=== PATIENT | female | born 1990 | race African-American/Black ===

== ENCOUNTER 2016-09-29 01:00 | Inpatient (IN) | payer OTHER ==
[~2016-09-29] VITALS: Ht 157.5 cm; Wt 63.5 kg
--- NOTE | ~2016-09-29 | DS ---
Unit #: [id number] #: [id number] Patient: EMILE WEST [id number] [place] [address] [id number] MR#: [id number] NAME: EMILE WEST ROOM: P184 Age: 26 Sex: F Admission Date: 09/29/2016 : 1990 Discharge Date: 10/02/2016 Attending Physician: Breana Oswald M.D. Primary Care Physician: Generic Doctor Not In System DISCHARGE SUMMARY IDENTIFICATION DATA Ms. West is a 26-year-old single female who is a resident of [place], [place], and was transferred to us from [facility]. DISCHARGE DIAGNOSES PSYCHIATRIC: Opiate dependence, moderate, in acute withdrawals. Opiate-induced mood disorder. MEDICAL: Hepatitis B. STRESSORS: Mild psychosocial stressors. HISTORY OF PRESENT ILLNESS Same as in initial psychiatric evaluation. PAST PSYCHIATRIC HISTORY Same as in initial psychiatric evaluation. PAST MEDICAL HISTORY Same as in initial psychiatric evaluation. HOSPITAL COURSE The patient was admitted to the adult chemical dependence unit at [facility] and was oriented to the hospital environment. Routine p.r.n. medications were initiated, and she was started back on her home medications. Her medications were adjusted, and she was closely monitored and opiate detox protocol was initiated. However, it was visibly noted that the patient has poor motivation towards treatment as she came in stating that she was wanting detox and could not do it at home. She was constantly wanting to leave and was coming up with different excuses and reasons as to why she should be able to leave and was denying any suicidal ideations, intent, or plan and is not meeting criteria for involuntary psychiatric hospitalizations, and recommendation for continuity of care was made. The patient was not willing to follow up and comply with treatment recommendations, and as such it was decided that she will be discharged home. We will continue treatment on outpatient basis. DISCHARGE MEDICATIONS None. CONDITION AT DISCHARGE Stable. PROGNOSIS Fair. Unit #: [id number] #: [id number] Patient: EMILE WEST Dictated by... Breana Oswald M.D. IAA/bzg TD: 10/03/2016 08:33 JOB #: [id number] DISCHARGE SUMMARY Page 1 of 1 X Breana Oswald MD DISCHARGE SUMMARY
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
--- NOTE | ~2016-09-29 | HP ---
Unit #: [id number] #: [id number] Patient: EMILE WEST [id number] [place] [address] [id number] I MR#: [id number] NAME: EMILE WEST ROOM: 84 Age: 26 Sex: F Admission Date: 09/29/2016 : 1990 Attending Physician: Breana Oswald M.D. Admitting Physician: Breana Oswald M.D. Primary Care Physician: Generic Doctor Not In System HISTORY AND PHYSICAL HISTORY OF PRESENT ILLNESS The patient is a 26-year-old female admitted to [facility] for heroin use. PAST MEDICAL HISTORY 1. Heroin abuse. 2. Nicotine dependence. 3. Hepatitis B. PAST SURGICAL HISTORY EAB times two. SOCIAL HISTORY She is unemployed and homeless, smokes one pack of cigarettes daily and uses a gram of heroin every day. FAMILY MEDICAL HISTORY Noncontributory. ALLERGIES Penicillin. CURRENT MEDICATIONS Methadone. REVIEW OF SYSTEMS CONSTITUTIONAL: No fever or chills. HEENT: Denies any sore throat, ear pain or runny nose. CARDIOVASCULAR: Denies chest pain, irregular heart rhythm or palpitations. CHEST: Denies shortness of breath or cough. No hemoptysis. GASTROINTESTINAL: Denies nausea, vomiting, diarrhea or chronic constipation. ENDOCRINE: Denies history of increased thirst or urination. No recent significant weight loss or gain. GENITOURINARY: Denies dysuria, frequency, or hematuria. SKIN: Denies any rashes. HEMATOLOGIC: Denies history of increased bleeding or bruising. MUSCULOSKELETAL: Denies any hot, swollen joints. No generalized muscle pain. NEUROLOGIC: Denies problems with vision or speech. No frequent, severe headaches. No numbness, tingling or weakness in any extremities. Denies loss of bladder or bowel control. PHYSICAL EXAM Unit #: [id number] #: [id number] Patient: EMILE WEST GENERAL: She is awake, alert and oriented in no acute distress. VITAL SIGNS: Temperature 98.3, heart rate 67, respiration 17, blood pressure 109/63. HEIGHT: 5 foot 2. WEIGHT: 140 pounds. SKIN: Warm and dry without rash or lesion. HEENT: Normocephalic. TMs not viewed. Oral and nasal passages clear. Conjunctivae clear. PERRLA. EOMs intact. NECK: Supple without lymphadenopathy or thyromegaly. HEART: Regular rate and rhythm without murmur. LUNGS: Clear. ABDOMEN: Soft, nontender. : Not done. EXTREMITIES: No evidence of cyanosis, clubbing or edema. Moves all without focal deficit. NEUROLOGICAL: Grossly within normal limits. Cranial Nerves: II: Visual sharma are intact. III, IV AND : Extraocular movements are intact. Pupils are equal, round and reactive to light. V: Facial sensation is grossly normal. VII: Facial movements and expression are normal. VIII: Auditory acuity grossly intact. IX, X: Uvula is midline. Phonation is normal. XI: Patient shrugs shoulders and turns head normally. XII: Tongue protrudes in the midline. Sensory and Motor Function: Sensory and motor sensation is grossly normal. Motor: moves all extremities well. IMPRESSION 1. Psychiatric admission. 2. Opioid abuse. 3. Hepatitis B. 4. Nicotine dependence. RECOMMENDATIONS Psychiatric per psychiatrist. MEDICAL: No contraindication to participate in facility activities. MEDICAL PROGNOSIS Good. MEDICAL CONDITION Stable. Dictated by... Lali Torres/pradeep TD: 09/30/2016 23:14 JOB #: [id number] Unit #: [id number] #: [id number] Patient: ESTERS,YOUWNA HISTORY AND PHYSICAL Page 1 of 1 X KELLEN ZHANG APRN HISTORY AND PHYSICAL
--- NOTE | ~2016-09-29 | PN ---
Unit #: [id number] #: [id number] Patient: EMILE WEST [id number] [facility] [address] [place] [address] [id number] MR#: [id number] NAME: EMILE WEST ROOM: [facility] Age: 26 Sex: F Admission Date: 09/29/2016 : 1990 Attending Physician: Breana Oswald M.D. Admitting Physician: Breana Oswald M.D. Primary Care Physician: Esha Doctor Not In System [facility] PROGRESS NOTES DATE 10/01/2016 DISCUSSION Ms. West is a 26-year-old female who was seen today and chart was reviewed and case was discussed with the staff. She has been anxious, withdrawn and rather seclusive to herself. Meanwhile, she has been cooperative with treatment recommendations as she has been taking the medications and tolerating them fairly well with no reported side effects. MENTAL STATUS EXAMINATION Young female who was casually dressed with fair personal hygiene, appears to be in no acute distress or discomfort. She was awake and alert on interaction with intact orientation. Her mood was anxious with congruent affect. Her speech was slow and goal-directed. She denies any suicidal or homicidal ideations. Also, denies any auditory or visual hallucinations. Her insight and judgement remains slightly impaired. TREATMENT PLAN 1. We will continue her on her current medications and treatment protocol. We will monitor her response to the medication and make further adjustments as needed. 2. We will continue to follow up. Dictated by... Allen Camacho/pradeep TD: 10/02/2016 03:11 JOB #: [id number] Unit #: [id number] #: [id number] Patient: EMILE WEST [facility] PROGRESS NOTES Page 1 of 1 X Breana Oswald MD PROGRESS NOTE
--- NOTE | ~2016-09-29 | PN ---
Unit #: [id number] #: [id number] Patient: EMILE WEST [id number] [facility] [address] [place] [address] [id number] MR#: [id number] NAME: EMILE WEST ROOM: [facility] Age: 26 Sex: F Admission Date: 09/29/2016 : 1990 Attending Physician: Breana Oswald M.D. Admitting Physician: Breana Oswald M.D. Primary Care Physician: Esha Doctor Not In System [facility] PROGRESS NOTES DATE 09/30/2016 DISCUSSION Ms. West is a 26-year-old female with opioid dependence who was seen today and chart was reviewed and case was discussed with the staff. She has been anxious, restless and seclusive to herself though appears to be in some distress and discomfort as she goes through detox. Meanwhile, she has been taking the medications and tolerating them fairly well with no reported side effects. MENTAL STATUS EXAMINATION Young female who was casually dressed with fair personal hygiene, appears to be in slight distress or discomfort. She was awake and alert with impaired attention and concentration. Her mood was anxious with congruent affect. She denies any suicidal or homicidal ideations. Her insight and judgement remains slightly impaired. TREATMENT PLAN 1. We will continue her on her current medications and treatment protocol. We will monitor her response to the medication and make further adjustments as needed. 2. We will continue to follow up. Dictated by... Allen Camacho/pradeep TD: 10/01/2016 04:22 JOB #: [id number] Unit #: [id number] #: [id number] Patient: EMILE WEST PROGRESS NOTES Page 1 of 1 X Breana Oswald MD X PROGRESS NOTE
[~2016-09-29 01:00] MED LIST: ERYTHROMYCIN O3.5 G1 OU; PHENERGAN DM PO; ZITHROMAX PO
[2016-09-30 11:09] LABS: BASOPHIL# 0.1 X10e3 (0-0.3); BASOPHIL% 0.6 % (0-2.5); EOSINOPHIL# 0.1 X10e3 (0-0.7); EOSINOPHIL% 0.9 % (0.0-7.0); HEMATOCRIT 38.3 % (35.0-45.0); HEMOGLOBIN 11.9 gm/dL (12.0-16.0); LYMPHOCYTE# 2.1 X10e3 (1.0-3.5); LYMPHOCYTE% 21.5 % (17.0-45.0); MEAN CELL VOLUME 72.5 FL (83-96); MEAN CORPUSCULAR HEMOGLOBIN 22.5 PG (28-34); MEAN PLATELET VOLUME 7.7 FL (6.5-11.5); MONOCYTE# 0.8 X10e3 (0-1.0); MONOCYTE% 7.7 % (3.0-12.0); NEUTROPHIL# 6.8 X10e3 (1.5-7.1); NEUTROPHIL% 69.3 % (40-75); PLATELET COUNT 328 X10e3 (140-420); RED BLOOD COUNT 5.29 X10e (3.90-5.30); RED CELL DISTRIBUTION WIDTH 15.4 % (11.0-15.5); WHITE BLOOD COUNT 9.8 X10e3 (4.0-10.5)
[2016-09-30 11:12] LABS: DIFF IND NO
[2016-09-30 11:26] LABS: ALBUMIN SERUM 3.5 g/dL (3.5-5.0); BILIRUBIN,TOTAL 0.2 mg/dL (0.2-2.0); CALCIUM SERUM 9.1 mg/dL (8.4-10.2); GLOM FILT RATE Estimated 89.5 mL/min (>60); POTASSIUM 4.3 mmol/L (3.5-5.1); PROTEIN TOTAL SERUM 6.6 g/dL (6.0-8.3)
== END 2016-10-02 09:50 | DRG 897 ==
LOC: P1E 11:48
PROVIDERS: Psychiatry & Neurology Psychiatry
PROC: HZ2ZZZZ Detoxification Services for Substance Abuse Treatment (ICD-10-PCS; principal; 2016-09-30)
DX: F11.23 Opioid dependence with withdrawal (principal); B19.10 Unspecified viral hepatitis B without hepatic coma; F17.210 Nicotine dependence, cigarettes, uncomplicated; F11.24 Opioid dependence with opioid-induced mood disorder
CPT/HCPCS: 80053; 85025; 86592; J2550